=== PATIENT | female | born 1985 | race Caucasian/White ===

== ENCOUNTER → 2016-06-27 | Day surgery (SDC) | payer BC ==
[2016-06-15 11:14] VITALS: Ht 162.6 cm; Wt 63.6 kg
[~2016-06-27] VITALS: Ht 162.6 cm; Wt 63.6 kg
[~2016-06-27] MED LIST: ACETAMINOPHEN 325 MG TAB PO PRN; ATROPINE SULFATE 0.1 MG/ML 5ML SYR IV PRN; BACITRACIN OP OINT 3.5 GM TUBE ONE; CLINDAMYCIN HCL 150 MG CAP PO SCH; CLINDAMYCIN PHOS 150 MG/ML 2 ML VIAL IV SCH; DOXY100C76 PO; ESOM20CA PO; EpHEDrine SULFATE INJ 50 MG/ML AMP IV PRN; FENTANYL CITRATE INJ 50 MCG/1 ML 2 ML VIAL IV PRN; LACTATED RINGER'S 1000ML 1,000 ML IV SCH; LIDOCAINE/EPINEPHRINE 1% INJ 50 ML VIAL ONE; METOCLOPRAMIDE HCL INJ 5 MG/ML 2 ML VIAL IV PRN; ONDANSETRON INJ 2 MG/ML 2 ML VIAL IV PRN; OXYCODONE/ACETAMINOPHEN 5-325 TAB PO PRN; POVIDONE-IODINE OP SOLN 30 ML BTL ONE; SODIUM BICARB 8.4% INJ 50 MEQ/50 ML SYR IV ONE; SODIUM BICARBONATE 4.2% INJ 10 ML SYR IV ONE; SODIUM CHLORIDE 0.9% 1000ML 1,000 ML IV SCH
--- NOTE | 2016-06-27 11:01 | History & Physical Bridge - [place] ---
H&P Re-Evaluation Bridge Note: I have examined the patient, reviewed the History & Physical and in the interval since the performance of the History & Physical I have noted the following changes of clinical significance: Patient notes new left lower eyelid lesion, requests biopsy. Consent amended with patient to reflect this.
--- NOTE | 2016-06-27 12:35 | Discharge Instructions ---
Discharge Instructions Date of Service Jun 27, 2016. Admission Reason for Admission: Basal Cell Carcinoma Of Face Discharge Discharge Diagnosis / Problem: Basal Cell Carcinoma of Face Discharge Goals Goal(s): Decrease discomfort Activity Recommendations Activity Limitations: per Instructions/Follow-up section ACTIVITY RECOMMENDATIONS: __Normal activities _x_No bending, lifting or straining __No driving _x_Driving allowed when you are off pain medications _x_Walking permitted __You should have help at home for ___ days DRESSINGS: _x_No dressings required __Keep dressings dry/in place until first office visit __Remove dressings ___ and leave dressings off __Apply ice ___ days __Remove dressings and reapply garment _x_Apply antibiotic ointment (Bacitracin, Neosporin, etc) to wounds 3-4 times/ day for 10 days BATHING: __Keep dressings dry __Sponge bathing permitted _x_Showering permitted in 24 hours _x_No swimming, hot tubs or soaking in a tub MEDICATIONS: Resume previous medications unless instructed otherwise by your surgeon. _x_Do not use aspirin, Motrin, Advil or Ibuprofen as these may promote bleeding. Please use Tylenol. _x_Prescription(s) provided: Pain medication provided at your last office visit. Bacitracin sent to your pharmacy OTHER INSTRUCTIONS: __Record drain output 2-3 times per day SPECIAL CARE INSTRUCTIONS: * It is normal to have a mild fever after surgery. If your temperature is higher than 101.5 degrees F, please call the office at [phone]. * Constipation is a typical side effect of pain medication. An over-the- counter stool softener will help relieve this. * Leaking around surgical drains may occur and should not cause concern. Sometimes these drains become clogged. If this happens, remove the bulb and milk the clot out of the tube, then replace the bulb. * Drainage from wounds after liposuction is normal and should be expected. Garments will become soiled. You should protect furniture and bedding. This drainage should mostly subside within 2-3 days. Leave garments in place unless instructed to remove them. * If you have unusual drainage from a wound or are concerned you have an infection or have any questions or concerns, please call the office at [phone]. FOLLOW UP VISIT: If not already scheduled, please call the office, , when you return home after surgery to schedule an appointment to be seen in _7__ days. . Current Hospital Diet Patient's current hospital diet: Discharge Diet Recommended Diet: Regular Diet Procedures Procedures Performed: Left Nose Basal Cell Carcinoma Excision, Frozen Section, Primary Closure, Left Lower Eyelid Biopsy Pending Studies Studies pending at discharge: yes List of pending studies: pathology Medical Emergencies . Who to Call and When: Medical Emergencies: If at any time you feel your situation is an emergency, please call 911 immediately. . Non-Emergent Contact Non-Emergency issues call your: Primary Care Provider, Surgeon . "Provider Documentation" section prepared by Joanna Chance. VTE Core Measure Inpt VTE Proph given/why not?: SCD's [place] Drug Monitoring Program Search Results: no issues identified
--- NOTE | 2016-06-27 12:35 | [facility] Post Operative Brief Note ---
Immediate Operative Summary Operative Date Jun 27, 2016. Pre-Operative Diagnosis Basal cell carcinoma of face, left nose, lesion lower left eye lid Post-Operative Diagnosis same as preop Procedure(s) Performed Left Nose Basal Cell Carcinoma Excision, Frozen Section, Primary Closure, Left Lower Eyelid Biopsy Surgeon Dr. Alvarado Scallop Binder Surgeon(s) Lisa Chance PA-C Estimated Blood Loss 1cc Findings no residual BCC Specimens Frozen Specimen #1: Basal cell under left nose Frozen Specimen #2: Lower eye lid lesion, (left -lab called after received and stated specimen is too small for frozen to be done, Dr. Alvarado made aware). Anesthesia local Complication(s) None Disposition Recovery Room / PACU
[2016-06-27 12:40] VITALS: TEMP 37
--- NOTE | 2016-06-27 12:42 | Medical Student: [facility] ---
Immediate Operative Summary Operative Date Jun 27, 2016. Pre-Operative Diagnosis 1.basal cell carcinoma of face, left nose 2.left lower eyelid lesion Post-Operative Diagnosis same Procedure(s) Performed Excision of basal cell carcinoma lesion under left nose, frozen section. Biopsy of left lower eyelid lesion. Surgeon Dr. Alvarado Roller Leveler Operator Surgeon(s) Joanna Chance PA-C Estimated Blood Loss 1cc Findings no residual BCC after excision Specimens A. lesion under left nose B. left lower eyelid lesion Anesthesia local Complication(s) None Disposition Recovery Room / PACU
[2016-06-27 12:52] VITALS: BP 107/72; PULSE 73; O2SAT 95
--- NOTE | 2016-06-27 17:25 | OPERATIVE REPORT ---
DATE OF OPERATION: 06/27/2016 PREOPERATIVE DIAGNOSES: Basal cell carcinoma underneath the left nose, lesion left lower eyelid. POSTOPERATIVE DIAGNOSES: Same. PROCEDURE: Excision basal cell carcinoma underneath the left nose with frozen section and primary layered closure and biopsy left lower eyelid lesion. SURGEON: Dr. Raquel Alvarado. LITHOGRAPHIC PRINTING MACHINIST: Joanna Chance PA-C ANESTHESIA: Local. COMPLICATIONS: None. INDICATION FOR THE PROCEDURE: The patient is a 30-year-old female with a history of multiple prior basal cell carcinomas as well as strong family history who was referred to me with a biopsy proven basal cell carcinoma at the base of the left ala. She was given options for Mohs versus excision with frozen section and elected to proceed with excision with frozen section. In the preoperative area, she pointed out a small lesion on her left lower eyelid which has been present for several months that she would like biopsied as well given the strong prior history. BRIEF DESCRIPTION OF THE PROCEDURE: The risks, benefits and alternatives of the procedure were explained to the patient who agreed and signed consent. She was identified and marked in the preoperative holding area. She was brought to the operating room where she was positioned supine and prepped and draped sterilely. A time-out procedure was performed. 1% lidocaine with epinephrine was used to anesthetize each of the planned excision sites. I began with the left eyelid biopsy. 6-0 silk suture was placed through lesion and traction was provided. Curved iris scissors was used to excise the lesion. A 6-0 silk suture was used to perform simple 1 suture closure of the area. Attention was then turned to excision of the basal cell of the left alar base. Planned excision measured a total of 9 mm. After the area was properly anesthetized, a 15-blade scalpel was used to make a circular incision. The lesion was removed with some underlying subcutaneous fat. A suture marked 12 o'clock. The patient was sent to pathology. Hemostasis was achieved with electrocautery. Frozen section showed no residual basal cell carcinoma. Given the small diameter of the excision, I felt this could be repaired primarily camouflaging the scar along the alar groove and upper lip. Two small dog ears were marked and excised. The wound was reapproximated using 5-0 Vicryl interrupted dermal sutures and 6-0 Prolene interrupted skin sutures as well as half buried horizontal mattress sutures along the alar groove. Antibiotic ointment was applied. Total wound closure length was 2.1 cm. The procedure was tolerated well. The patient was transferred to recovery room in satisfactory condition. I attest to the content of the Intraoperative Record and any orders documented therein. Any exceptions are noted below. MTDD
== END | disposition home or self-care (01) ==
LOC: X.SURG 09:52
PROVIDERS: ATTEND Plastic Surgery
DX: C44.311 Basal cell carcinoma of skin of nose (principal); L57.0 Actinic keratosis; Z79.899 Other long term (current) drug therapy